=== PATIENT | male | born 1950 | race Two or more races ===

== ENCOUNTER 2022-06-04 12:13 | Emergency (ER) | payer OTHER ==
[~2022-06-04] VITALS: Ht 177.8 cm; Wt 81.6 kg
[2022-06-04] MEDS ORDERED: DESCOVY 200-251 EACH PO (13:47)
[2022-06-04] MEDS ORDERED: ATORVASTATIN CA10 MG PO (13:48)
[2022-06-04] MEDS ORDERED: TIVICAY50 MG PO (13:48)
== END 2022-06-04 14:14 | disposition home or self-care (01) ==
LOC: ER 12:13
DX: U07.1 COVID-19 (principal); Z21 Asymptomatic human immunodeficiency virus [HIV] infection status